=== PATIENT | female | born 1955 | race Caucasian/White ===

== ENCOUNTER 2017-01-31 03:56 | Emergency (ER) | payer BC, OTHER ==
[2017-01-31] MEDS ORDERED: CEPHALEXIN 500 MG CAPSULE PO ONE (05:41)
--- NOTE | 2017-01-31 05:44 | ER Document Report ---
ED General - General Chief Complaint: Abscess Stated Complaint: POSSIBLE ABSCESS Mode of Arrival: Ambulatory Information source: Patient Notes: Patient presents to the emergency department with complaints of the boil. She reports it started a few days ago. She's been treating it with potato compresses warm packs. Patient also reports she's been squeezing the area and has obtained discharge. She reports history of boils but denies history of MRSA. Patient also denies other symptoms such as fever vomiting diarrhea. She felt like the boil was spreading so she came to the emergency department. She reports she feels a knot in her thigh and lower back. No s/s abscess or boil in these areas. TRAVEL OUTSIDE OF THE [place] IN LAST 30 DAYS: No - HPI Onset: Other - 2 days Onset/Duration: Persistent Severity: Mild Pain Level: 2 Associated symptoms: None Exacerbated by: Denies Relieved by: Denies Similar symptoms previously: Yes Recently seen / treated by doctor: No - Related Data Allergies/Adverse Reactions: Sulfa (Sulfonamide Antibiotics) Allergy (Verified 08/24/16 08:35) Generalized rash Past Medical History - General Information source: Patient Last Menstrual Period: years ago - Social History Smoking Status: Never Smoker Chew tobacco use (# tins/day): No Frequency of alcohol use: None Drug Abuse: None Lives with: Family Family History: Reviewed & Not Pertinent Patient has suicidal ideation: No Patient has homicidal ideation: No - Past Medical History Cardiac Medical History: Reports: Hx Hypercholesterolemia, Hx Hypertension Pulmonary Medical History: Reports: Hx Asthma Endocrine Medical History: Reports: Hx Diabetes Mellitus Type 2 Renal/ Medical History: Denies: Hx Peritoneal Dialysis GI Medical History: Reports: Hx Gastroesophageal Reflux Disease Past Surgical History: Reports: Hx Section, Hx Cholecystectomy, Hx Genitourinary Surgery - Bladder reconstruction, Hx Hysterectomy, Hx Orthopedic Surgery - spinal fusion, Hx Tonsillectomy - Immunizations Hx Diphtheria, Pertussis, Tetanus Vaccination: Yes Review of Systems - Review of Systems Notes: Review HPI for review of systems., All other systems negative Physical Exam - Vital signs Vitals: Temp Pulse Resp BP Pulse Ox 97.8 F 77 18 144/85 H 97 01/31/17 04:02 01/31/17 04:02 01/31/17 04:02 01/31/17 04:02 01/31/17 04:02 - Notes Notes: PHYSICAL EXAMINATION: GENERAL: Well-appearing and in no acute distress nontoxic looking HEAD: Atraumatic, normocephalic. EYES: Pupils equal round extraocular movements intact, sclera anicteric, conjunctiva are normal. ENT: nares patent, Moist mucous membranes. NECK: Normal range of motion, supple without lymphadenopathy LUNGS: CTAB and equal. No wheezes rales or rhonchi. HEART: Regular rate and rhythm without murmurs EXTREMITIES: Normal range of motion, no pitting edema. No cyanosis. NEUROLOGICAL: Cranial nerves grossly intact. Normal sensory/motor exams. PSYCH: Normal mood, normal affect. SKIN: Warm, Dry, normal turgor, oblong ~ 3x2 cm erythema noted to right hip with scab, no induration, no swelling, no pustule, area squeezed and small amount of bloody drainage obtained. No knots noted. Course - Re-evaluation Re-evalutation: 01/31/17 05:56 Patient is very anxious. Patient is also diabetic. Will treat patient with Keflex while culture pending. No need for I & D, no induration/no pustule. Patient was instructed to follow up with Dr. Ryan for recheck. She verbalized understanding to all. - Vital Signs Vital signs: Temp Pulse Resp BP Pulse Ox 97.8 F 77 18 144/85 H 97 01/31/17 04:02 01/31/17 04:02 01/31/17 04:02 01/31/17 04:02 01/31/17 04:02 Discharge - Discharge Clinical Impression: Abscess, Elevated blood pressure reading Condition: Stable Disposition: HOME, SELF-CARE Instructions: Cephalexin ([facility]), Abscess ([facility]) Additional Instructions: *You have been treated for an abscess *Take medication as prescribed *A wound culture is pending, a nurse will contact you should you need a different antibiotic *Monitor the site for signs of increasing infection such as increasing pain, redness, swelling, warmth *Keep the area clean, good hand washing *Follow up with Dr Ryan within 5 days for recheck *Monitor your blood pressure. Your blood pressure was elevated today. This may be because you were anxious, in pain or because you need medication. It is important to follow up with your primary care provider for full evaluation. *Return to ED for signs of increasing infection, worsening condition, changes, needs Prescriptions: Cephalexin Monohydrate [Keflex 250 Mg Capsule] 250 mg PO QID #20 capsule Forms: Elevated Blood Pressure Referrals: KENDALL RYAN MD [Primary Care Provider] - Follow up in 3-5 days
[2017-01-31 06:44] VITALS: BP 127/81
== END 2017-01-31 06:20 | disposition home or self-care (01) ==
LOC: ER 03:56
DX: L02.415 Cutaneous abscess of right lower limb (principal); R03.0 Elevated blood-pressure reading, without diagnosis of hypertension; E11.9 Type 2 diabetes mellitus without complications; E78.00 Pure hypercholesterolemia, unspecified; I10 Essential (primary) hypertension; J45.909 Unspecified asthma, uncomplicated; Z90.49 Acquired absence of other specified parts of digestive tract; Z90.710 Acquired absence of both cervix and uterus; Z98.1 Arthrodesis status; Z88.2 Allergy status to sulfonamides
CPT/HCPCS: 87070; 87077; 87186; 87205; 99282

== ENCOUNTER 2017-03-22 07:43 | Emergency (ER) | payer BC, OTHER ==
[2017-03-22 09:08] LABS: ABSOLUTE BASOPHILS # (AUTO) 0.1 10^3/uL (0.0-0.2); ABSOLUTE EOSINOPHILS # (AUTO) 0.3 10^3/uL (0.0-0.6); ABSOLUTE LYMPHOCYTES (AUTO) 1.7 10^3/uL (0.5-4.7); ABSOLUTE MONOCYTES (AUTO) 0.7 10^3/uL (0.1-1.4); ABSOLUTE NEUT (AUTO) 6.5 10^3/uL (1.7-8.2); EOSINOPHILS % (AUTO) 3.2 % (0-6); HEMATOCRIT 41.8 % (36.0-47.0); HEMOGLOBIN 14.4 g/dL (12.0-15.5); HGB HCT DIFFERENCE 1.4; LYMPHOCYTES % (AUTO) 18.3 % (13-45); MEAN CORPUSCULAR HEMOGLOBIN 30.7 pg (27.0-33.4); MEAN CORPUSCULAR HGB CONC 34.5 g/dL (32.0-36.0); MEAN CORPUSCULAR VOLUME 89 fl (80-97); MONOCYTES % (AUTO) 7.5 % (3-13); WHITE BLOOD COUNT 9.3 10^3/uL (4.0-10.5)
[2017-03-22 09:19] LABS: APPEARANCE,URINE CLEAR; BILIRUBIN,URINE NEGATIVE (NEGATIVE); GLUCOSE, URINE NEGATIVE (NEGATIVE); KETONES,URINE NEGATIVE (NEGATIVE); LEUKOCYTE ESTERASE,URINE NEGATIVE (NEGATIVE); NITRITE,URINE NEGATIVE (NEGATIVE); PROTEIN,URINE NEGATIVE (NEGATIVE); URINE SPECIFIC GRAVITY 1.009; UROBILINOGEN,URINE NEGATIVE mg/dL (<2.0)
[2017-03-22 09:33] LABS: ALANINE AMINOTRANSFERASE 33 U/L (9-52); ALBUMIN 4.5 g/dL (3.5-5.0); ALKALINE PHOSPHATASE 80 U/L (38-126); ANION GAP 15 (5-19); ASPARTATE AMINO TRANSFERASE 23 U/L (14-36); BILIRUBIN,DIRECT 0.1 mg/dL (0.0-0.4); BILIRUBIN,TOTAL 0.4 mg/dL (0.2-1.3); BLOOD UREA NITROGEN 15 mg/dL (7-20); CARBON DIOXIDE 27 mmol/L (22-30); CHLORIDE 101 mmol/L (98-107); CREATINE KINASE 57 U/L (30-135); CREATININE RESULT 0.66 mg/dL (0.52-1.25); GLUCOSE 114 mg/dL (75-110); TOTAL PROTEIN 7.1 g/dL (6.3-8.2)
[2017-03-22 09:55] LABS: CREATINE KINASE MB 0.49 ng/mL (<4.55)
[2017-03-22 10:08] LABS: TROPONIN I < 0.012 ng/mL
--- NOTE | 2017-03-22 10:26 | ER Document Report ---
ED Respiratory Problem - General Mode of Arrival: Ambulatory Information source: Patient TRAVEL OUTSIDE OF THE [place] IN LAST 30 DAYS: No - HPI Patient complains to provider of: Other - Difficulty Breathing Onset: This morning Duration: Better Initiating Event: Allergy - Possible Context: Hx asthma At home treatment: Bronchodilators Associated symptoms: Difficulty breathing, Tingling face - Tongue, Other - Enlarged underarm lymphnodes <KWESI PARMAR - Last Filed: 03/22/17 10:37> <SUDHAKAR ZIEGLER - Last Filed: 03/22/17 12:17> - General Chief Complaint: Breathing Difficulty Stated Complaint: TROUBLE BREATHING Notes: Patient is a 61-year-old female presenting to the emergency department concerned of difficulty breathing onset approximately 0300 this morning. Patient reports eating a peanut butter sandwich at midnight because she felt hungry, and states that this is new peanut butter. Patient denies any history of nut allergies. Patient states that the only allergies that she is aware of are Lamictal and Sulfa. Patient states after she ate the butter sandwich her tongue felt prickly, but she also has a new sleep apnea mouthpiece that she put any right after she ate. She does not know if she is experiencing a new allergy. Patient reports taking her inhalers and Benadryl, which helped somewhat. Patient also states that her face and the lymph nodes under her arms swelled. Patient has a history of asthma, GERD, HTN, Pre-diabetes. (KWESI PARMAR) - Related Data Allergies/Adverse Reactions: Sulfa (Sulfonamide Antibiotics) Allergy (Verified 08/24/16 08:35) Generalized rash Past Medical History - General Information source: Patient - Social History Smoking Status: Current Every Day Smoker Lives with: Spouse/Significant other Family History: Reviewed & Not Pertinent Patient has suicidal ideation: No Patient has homicidal ideation: No - Past Medical History Cardiac Medical History: Reports: Hx Hypercholesterolemia, Hx Hypertension Pulmonary Medical History: Reports: Hx Asthma Endocrine Medical History: Reports: Hx Diabetes Mellitus Type 2 Renal/ Medical History: Denies: Hx Peritoneal Dialysis GI Medical History: Reports: Hx Gastroesophageal Reflux Disease Past Surgical History: Reports: Hx Section, Hx Cholecystectomy, Hx Genitourinary Surgery - Bladder reconstruction, Hx Hysterectomy, Hx Orthopedic Surgery - spinal fusion, Hx Tonsillectomy - Immunizations Hx Diphtheria, Pertussis, Tetanus Vaccination: Yes <KWESI PARMAR - Last Filed: 03/22/17 10:37> Review of Systems - Review of Systems Constitutional: No symptoms reported EENT: See HPI, Throat swelling, Mouth swelling, Other - Face swelling Cardiovascular: No symptoms reported Respiratory: See HPI, Short of breath Gastrointestinal: No symptoms reported Genitourinary: No symptoms reported Female Genitourinary: No symptoms reported Musculoskeletal: No symptoms reported Skin: No symptoms reported Hematologic/Lymphatic: See HPI, Enlarged lymph nodes - Underarms Neurological/Psychological: No symptoms reported -: Yes All other systems reviewed and negative <LUKE PARMARICA - Last Filed: 03/22/17 10:37> Physical Exam <AGATAKWESI - Last Filed: 03/22/17 10:37> <SUDHAKAR ZIEGLER - Last Filed: 03/22/17 12:17> - Vital signs Vitals: Temp Pulse Resp BP Pulse Ox 97.6 F 87 24 H 145/93 H 99 03/22/17 07:47 03/22/17 07:47 03/22/17 07:47 03/22/17 07:47 03/22/17 07:47 - Notes Notes: Physical Exam: GENERAL: VS as per nursing doc. Well-appearing, well-nourished and in no acute distress. HEAD: Atraumatic, normocephalic. EYES: Sclera anicteric, no conjunctival injection or discharge. ENT: Nares patent, oropharynx clear without exudates. Moist mucous membranes. No oropharyngeal edema NECK: Normal range of motion, supple without lymphadenopathy. No JVD. No Carotid Bruits. LUNGS: Breath sounds clear to auscultation bilaterally and equal. No wheezes rales or rhonchi. HEART: Normal S1S2. Regular rate and rhythm without murmurs. Equal peripheral pulses. ABDOMEN: Soft, non-tender. EXTREMITIES: No edema. NEUROLOGICAL: Cranial nerves grossly intact. Normal speech. Normal sensory and motor exams. No gross cerebellar abnormalities. PSYCH: Normal mood, normal affect. SKIN: Warm, dry, no cyanosis, Cap refill < 2 sec. (SUDHAKAR ZIEGLER) Course - Laboratory Result Diagrams: 03/22/17 08:51 03/22/17 08:51 <KWESI PARMAR - Last Filed: 03/22/17 10:37> - Laboratory Result Diagrams: 03/22/17 08:51 03/22/17 08:51 - EKG Interpretation by Me EKG shows normal: Sinus rhythm Rate: Normal - Left atrial enlargement. Heart rate 77. No clear ischemia. Normal QRS <SUDHAKAR ZIEGLER - Last Filed: 03/22/17 12:17> - Re-evaluation Re-evalutation: 03/22/17 12:13 Patient's labs and x-ray were reviewed. Nothing acute noted. She has improved and does not feel the swelling. Her breathing is normal. She is back at baseline and is requesting to leave. She will return if worsening. Unclear of the etiology but it does seem more allergic in nature. (SUDHAKAR ZIEGLER) - Vital Signs Vital signs: Temp Pulse Resp BP Pulse Ox 97.6 F 87 18 145/93 H 97 03/22/17 08:00 03/22/17 08:00 03/22/17 10:23 03/22/17 08:00 03/22/17 10:23 - Laboratory Laboratory results interpreted by me: 03/22/17 08:51 Glucose 114 H Discharge <KWESI PARMAR - Last Filed: 03/22/17 10:37> <SUDHAKAR ZIEGLER - Last Filed: 03/22/17 12:17> - Discharge Clinical Impression: Allergic reaction Condition: Good Disposition: HOME, SELF-CARE Instructions: Acute Allergic Reaction ([facility]) Additional Instructions: Contact her primary care physician on Friday for follow-up. Continue Benadryl every 6 hours today. Return if you feel you are worsening or for other concern. Prescriptions: Prednisone [Deltasone 20 mg Tablet] 2 tab PO DAILY 5 Days Forms: Elevated Blood Pressure Scribe Attestation: 03/22/17 12:16 I personally performed the services described in the documentation, reviewed and edited the documentation which was dictated to the scribe in my presence, and it accurately records my words and actions. (SUDHAKAR ZIEGLER) Scribe Documentation - Scribe Written by Scribe:: Kwesi Parmar 03/22/2017 1037 acting as scribe for :: Sho <KWESI PARMAR - Last Filed: 03/22/17 10:37>
[2017-03-22] MEDS ORDERED: PREDNISONE 20 MG TABLET PO ONE (10:37)
[2017-03-22] MEDS ORDERED: IPRATROPIUM/ALBUTEROL 0.5-2.5 MG/3 ML AMPUL NEB ONE (10:38)
[2017-03-22 13:05] VITALS: BP 137/77
--- NOTE | 2017-03-23 17:04 | EKG REPORT ---
SEVERITY:- ABNORMAL ECG - SINUS RHYTHM LEFT ATRIAL ABNORMALITY : Confirmed by: Jade Oscar MD 23-Mar-2017 17:02:09
== END 2017-03-22 13:06 | disposition home or self-care (01) ==
LOC: ER 07:43
DX: T78.40XA Allergy, unspecified, initial encounter (principal); R06.02 Shortness of breath; F17.200 Nicotine dependence, unspecified, uncomplicated
CPT/HCPCS: 93005; 94640; 99284; 36415; 82553; 82550; 85025; 80053; 81001; 84484; 71010; 93010; J7512; J7620

== ENCOUNTER 2017-07-04 01:47 | Emergency (ER) | payer BC, OTHER ==
[2017-07-04] MEDS ORDERED: DOXYCYCLINE HYCLATE 100 MG TABLET PO ONE (03:31)
[2017-07-04] MEDS ORDERED: CEPHALEXIN 500 MG CAPSULE PO ONE (03:31)
--- NOTE | 2017-07-04 03:34 | ER Document Report ---
ED Skin Rash/Insect Bite/Abscs - General Chief Complaint: Abscess Stated Complaint: POSSIBLE ABSCESS Time Seen by Provider: 07/04/17 03:20 Notes: Patient is a 62-year-old female that comes emergency department for chief complaint of an area of redness abdomen. She states that she had an abscess which opened and drained, states this occurred yesterday, states the area started becoming red today. She states she has had both abscesses and cellulitis in the past. She is a type II diabetic and takes oral medication. She denies any fever, chills, nausea/vomiting. TRAVEL OUTSIDE OF THE [place] IN LAST 30 DAYS: No - Related Data Allergies/Adverse Reactions: Sulfa (Sulfonamide Antibiotics) Allergy (Verified 08/24/16 08:35) Generalized rash lamotrigine [From Lamictal] Adverse Reaction (Verified 07/04/17 03:47) rash levofloxacin [From Levaquin] Adverse Reaction (Verified 07/04/17 03:47) rash Past Medical History - General Information source: Patient - Social History Smoking Status: Never Smoker Frequency of alcohol use: None Drug Abuse: None Lives with: Family Family History: Reviewed & Not Pertinent Patient has suicidal ideation: No Patient has homicidal ideation: No - Past Medical History Cardiac Medical History: Reports: Hx Hypercholesterolemia, Hx Hypertension Pulmonary Medical History: Reports: Hx Asthma Endocrine Medical History: Reports: Hx Diabetes Mellitus Type 2 Renal/ Medical History: Denies: Hx Peritoneal Dialysis GI Medical History: Reports: Hx Gastroesophageal Reflux Disease Past Surgical History: Reports: Hx Section, Hx Cholecystectomy, Hx Genitourinary Surgery - Bladder reconstruction, Hx Hysterectomy, Hx Orthopedic Surgery - spinal fusion, Hx Tonsillectomy - Immunizations Hx Diphtheria, Pertussis, Tetanus Vaccination: Yes Review of Systems - Review of Systems Constitutional: No symptoms reported EENT: No symptoms reported Cardiovascular: No symptoms reported Respiratory: No symptoms reported Gastrointestinal: No symptoms reported Genitourinary: No symptoms reported Female Genitourinary: No symptoms reported Musculoskeletal: No symptoms reported Skin: See HPI Hematologic/Lymphatic: No symptoms reported Neurological/Psychological: No symptoms reported Physical Exam - Vital signs Vitals: Temp Pulse Resp BP Pulse Ox 98.7 F 85 16 130/78 H 97 07/04/17 02:01 07/04/17 02:01 07/04/17 02:01 07/04/17 02:01 07/04/17 02:01 Interpretation: Normal - General General appearance: Appears well, Alert In distress: None - HEENT Head: Normocephalic, Atraumatic Eyes: Normal Pupils: PERRL - Respiratory Respiratory status: No respiratory distress Chest status: Nontender Breath sounds: Normal Chest palpation: Normal - Cardiovascular Rhythm: Regular Heart sounds: Normal auscultation Murmur: No - Abdominal Inspection: Normal Distension: No distension Bowel sounds: Normal Tenderness: Nontender. No: Tender, Guarding Organomegaly: No organomegaly - Back Back: Normal, Nontender - Extremities General upper extremity: Normal inspection, Nontender, Normal color, Normal ROM , Normal temperature General lower extremity: Normal inspection, Nontender, Normal color, Normal ROM , Normal temperature, Normal weight bearing. No: Lesvia's sign - Neurological Neuro grossly intact: Yes Cognition: Normal Orientation: AAOx4 Beaumont Coma Scale Eye Opening: Spontaneous Bea[place]ont Coma Scale Verbal: Oriented Eliza Coma Scale Motor: Obeys Commands Beaumont Coma Scale Total: 15 Speech: Normal Motor strength normal: LUE, RUE, LLE, RLE Sensory: Normal - Psychological Associated symptoms: Normal affect, Normal mood - Skin Skin Temperature: Warm Skin Moisture: Dry Skin Color: Normal Skin irregularity: other - There is mild erythema and warmth in the right lower abdomen in a slightly oval-shaped area. Near the center of this area there is a healed area of skin, no induration, no fluctuance, no tenderness. No abnormalities noted otherwise. Course - Re-evaluation Re-evalutation: Exam consistent with old abscess which has already resolved, there is no induration or fluctuance. However there is an area of cellulitis in the right lower abdominal wall. This is very mild. Due to diabetic status and history of abscess and cellulitis, patient will be given initial dose and placed on antibiotics, recommended close follow-up for reevaluation, discussed return precautions in detail. Patient states understanding and agreement. - Vital Signs Vital signs: Temp Pulse Resp BP Pulse Ox 98.7 F 88 18 128/87 H 97 07/04/17 02:04 07/04/17 03:47 07/04/17 03:47 07/04/17 03:47 07/04/17 03:47 Discharge - Discharge Clinical Impression: Cellulitis Qualifiers: Site of cellulitis: unspecified site Qualified Code(s): L03.90 - Cellulitis, unspecified Condition: Stable Disposition: HOME, SELF-CARE Additional Instructions: Examination is consistent with cellulitis. Take the antibiotics as prescribed, monitor the area closely, follow-up with primary care. Return immediately for any worsening symptoms including spreading redness, fever, or any other concerning symptoms. Prescriptions: Cephalexin Monohydrate [Keflex 500 mg Capsule] 500 mg PO QID #28 capsule Doxycycline Hyclate 100 mg PO BID #14 capsule Referrals: KENDALL RYAN MD [Primary Care Provider] - Follow up as needed
[2017-07-04 03:48] VITALS: BP 128/87
== END 2017-07-04 03:47 | disposition home or self-care (01) ==
LOC: ER 01:47
DX: L03.311 Cellulitis of abdominal wall (principal); E11.9 Type 2 diabetes mellitus without complications; I10 Essential (primary) hypertension; J45.909 Unspecified asthma, uncomplicated; Z79.84 Long term (current) use of oral hypoglycemic drugs; Z88.2 Allergy status to sulfonamides
CPT/HCPCS: 99282

== ENCOUNTER → 2018-03-31 | Outpatient (CLI) | payer BC, OTHER ==
--- NOTE | 2018-03-31 15:47 | WOMENS IMAGING REPORT ---
EXAM DESCRIPTION: BILAT SCREENING MAMMO W/CAD COMPLETED DATE/TIME: 03/31/2018 1:59 pm REASON FOR STUDY: ROUTINE SCREENING;Z12.31 Z12.31 ENCNTR SCREEN MAMMOGRAM FOR MALIGNANT NEOPLASM OF MICHAEL COMPARISON: 2009 to 2015 TECHNIQUE: Standard craniocaudal and mediolateral oblique views of each breast recorded using Viratecha l acquisition. LIMITATIONS: None. FINDINGS: No masses, calcifications or architectural distortion. No areas of suspicion. Read with the assistance of CAD. .[facility] - R2 Cenova Version 1.3 .[facility] Imaging - R2 Cenova Version 1.3 .[facility] Imaging - R2 Cenova Version 2.4 .[facility] [place] - R2 Cenova Version 2.4 .[facility] - R2 [employer] Version 9.2 IMPRESSION: NORMAL MAMMOGRAM. BIRADS 1. BREAST DENSITY: b. There are scattered areas of fibroglandular density. BIRAD: 1 NEGATIVE RECOMMENDATION: ROUTINE SCREENING COMMENT: The patient has been notified of the results by letter per SA requirements. Additional no tification policies are in place for contacting patient with suspicious or incomplete findings. Quality ID #225: The [employer] recommends an annual screening mammogram for women aged 40 years or over. This facility utilizes a reminder system to ensure that all patients receive reminder letters, and/or direct phone calls for appointments. This includes reminders for routine scr eening mammograms, diagnostic mammograms, or other Breast Imaging Interventions when appropriate. Th is patient will be placed in the appropriate reminder system. The [employer] (ACR) has developed recommendations for screening MRI of the breast s in certain patient populations, to be used in conjunction with mammography. Breast MRI surveillanc e may be appropriate for women with more than 20% lifetime risk of developing breast cancer as deter mined by genetic testing, significant family history of the disease, or history of mantle radiation f or Hodgkins Disease. ACR Practice Guidelines 2008. TECHNICAL DOCUMENTATION: FINDING NUMBER: (1) ASSESSMENT: (1) JOB ID: [id number] [employer]- All Rights Reserved Reading location - IP/workstation name: [email or web address]
== END ==
LOC: WI 13:44
PROVIDERS: ATTEND Obstetrics & Gynecology
DX: Z12.31 Encounter for screening mammogram for malignant neoplasm of breast (principal)
CPT/HCPCS: 77067

== ENCOUNTER → 2019-05-06 | Outpatient (CLI) | payer BC, OTHER ==
--- NOTE | 2019-05-06 11:21 | WOMENS IMAGING REPORT ---
EXAM DESCRIPTION: 3D SCREENING MAMMO BILAT COMPLETED DATE/TIME: 05/06/2019 10:41 am REASON FOR STUDY: Z12.31 ENCOUNTER FOR SCREENING MAMMOGRAM FOR MALIGNANT NEOPLASM OF BREAST Z12.31 ENCNTR SCREEN MAMMOGRAM FOR MALIGNANT NEOPLASM OF MICHAEL COMPARISON: 03/31/2018 and 03/19/2016. EXAM PARAMETERS: Standard craniocaudal and mediolateral oblique views of each breast recorded using digital acquisition and breast tomosynthesis. Read with the assistance of CAD. .[facility] - City Assessor Version 9.2 LIMITATIONS: None. FINDINGS: Findings present which are benign by mammographic criteria. No suspicious masses, calcific ations or architectural distortion. Pertinent benign findings: Stable small nodules and benign calcifications. Benign mammographic findings may include one or more of the following: Smooth masses, popcorn/rim/coa rse calcifications, asymmetries, post-procedure changes, and lesions with long-standing stability. IMPRESSION: Assessment: BENIGN MAMMOGRAPHIC FINDINGS. BIRADS 2 BREAST DENSITY: a. The breasts are almost entirely fatty. BIRAD: 2 BENIGN FINDING(S) RECOMMENDATION: ROUTINE SCREENING COMMENT: The patient has been notified of the results by letter per SA requirements. Additional no tification policies are in place for contacting patient with suspicious or incomplete findings. Quality ID #225: The [employer] recommends an annual screening mammogram for women aged 40 years or over. This facility utilizes a reminder system to ensure that all patients receive reminder letters, and/or direct phone calls for appointments. This includes reminders for routine scr eening mammograms, diagnostic mammograms, or other Breast Imaging Interventions when appropriate. Th is patient will be placed in the appropriate reminder system. TECHNICAL DOCUMENTATION: FINDING NUMBER: (1) ASSESSMENT: (1) JOB ID: [id number] [employer]- All Rights Reserved Reading location - IP/workstation name: [facility]
== END ==
LOC: WI 09:55
PROVIDERS: ATTEND Nurse Practitioner
DX: Z12.31 Encounter for screening mammogram for malignant neoplasm of breast (principal)
CPT/HCPCS: 77063; 77067